=== PATIENT | female | born 1950 | race Caucasian/White ===

== ENCOUNTER → 2017-12-31 | Outpatient (CLI) | payer MEDICARE ==
--- NOTE | 2017-12-31 11:17 | MR ---
EXAMINATION TYPE: MR brain wo/w con DATE OF EXAM: 12/31/2017 COMPARISON: NONE HISTORY: Stroke TECHNIQUE: Multiplanar, multisequence images of the brain and brainstem is performed without and with IV contras t, utilizing 7.5 mL intravenous Gadavist . FINDINGS: Diffusion weighted images demonstrate no evidence of a recent infarct or other diffusion ab normality. There is [id number] degenerative change. Diffuse and focal areas of abnormal signal are seen throughout the white matter bilaterally totally g reater than 50 lesions. Findings are nonspecific. Tiny areas of abnormal signal the basal ganglia may represent remote lacunar infarct or prominent Vir sheffield-Jere spaces.. Midline structures demonstrate normal morphology. The craniocervical junction appears within normal limits. Post contrast images demonstrate no abnormal enhancement. The dural venous sinuses appear pa tent. Changes of chronic sinusitis are noted. IMPRESSION: 1. Degenerative and diffuse nonspecific white matter changes most typical remote microvascular ischem ia correlate clinically.
== END | disposition home or self-care (01) ==
LOC: RADMRIMAIN 10:01
PROVIDERS: ATTEND Internal Medicine Geriatric Medicine
DX: G31.9 Degenerative disease of nervous system, unspecified (principal); R90.82 White matter disease, unspecified
CPT/HCPCS: 70553; A9581

== ENCOUNTER → 2020-10-29 | Outpatient (CLI) | payer MEDICARE ==
[2020-10-29 10:22] VITALS: BP 133/89; PULSE 80; RESP 18; TEMP 98.2
--- NOTE | 2020-10-29 11:48 | P.HPOB ---
History of Present Illness H&P Date: 10/29/20 Chief Complaint: The patient is here for her routine gynecologic exam. This is a 70-year-old with an LMP of 2000. The patient is here to establish with this office. Her last pelvic exam was about 7 years ago. The patient has been experiencing discomfort with sexual intercourse and she states it feels like the vagina is "tight". She has tried lubricants without skin improvement. She is otherwise without complaints. She states she has no history of cervical cancer or precancerous changes of the cervix. She previously was seen at [facility] for regular gynecologic exams and Pap smears up until age 63. Review of Systems Weight has been stable. She denies respiratory or cardiac problems. GI: Occasional gastric reflux symptoms. She denies maltreatment or problems with falling. : Occasional small leakage which is not a significant problem for her. She has also noticed her strain is weaker over the years. Past Medical History Past Medical History: GERD/Reflux, Hyperlipidemia, Hypertension, Thyroid Disorder Additional Past Medical History / Comment(s): Hypothyroidism and osteopenia. 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 History of Any Multi-Drug Resistant Organisms: None Reported Past Surgical History: Tubal Ligation Additional Past Surgical History / Comment(s): 2 D&Cs. Parathyroid gland removed. Past Psychological History: No Psychological Hx Reported Smoking Status: Never smoker Past Alcohol Use History: Occasional (2 per week) Past Drug Use History: None Reported Additional History: She has been since 1968 and is sexually active. 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 - Past Family History Mother Family Medical History: Cancer Additional Family Medical History / Comment(s): Breast cancer. Maternal grandmother also had breast cancer. Father Family Medical History: Coronary Artery Disease (CAD) Medications and Allergies Home Medications Medication Instructions Recorded Confirmed Type Bioflax 1 tablet PO DAILY 10/29/20 10/29/20 History Calcium Carbonate [Calcium] 600 mg PO DAILY 10/29/20 10/29/20 History Ergocalciferol (Vitamin D2) 1,250 mcg PO DAILY 10/29/20 10/29/20 History [Vitamin D2 (50,000 Iu)] Famotidine [Pepcid] 20 mg PO HS 10/29/20 10/29/20 History Labetalol [Trandate] 200 mg PO HS 10/29/20 10/29/20 History Levothyroxine Sodium [Synthroid] 50 mcg PO HS 10/29/20 10/29/20 History Omeprazole 20 mg PO DAILY 10/29/20 10/29/20 History Rosuvastatin [Crestor] 20 mg PO HS 10/29/20 10/29/20 History Vitamin E 1,200 unit PO DAILY 10/29/20 10/29/20 History Zolpidem [Ambien] 5 mg PO HS PRN 10/29/20 10/29/20 History amLODIPine [Norvasc] 5 mg PO DAILY 10/29/20 10/29/20 History Allergies Allergy/AdvReac Type Severity Reaction Status Date / Time Penicillins AdvReac Rash/Hives Unverified 10/29/20 10:16 Exam Vital Signs Temp Pulse Resp BP Pulse Ox 10/29/20 10:17 98.2 F 80 18 133/89 98 Intake and Output 10/28/20 10/29/20 10/29/20 22:59 06:59 14:59 Other: Weight 82.1 kg Height 5 feet 3 inches, weight 181 pounds, BMI 32.1. This is a well-developed well-nourished white female who is alert and oriented times 3 in no acute distress. HEENT: Within normal limits. NECK: Supple without mass or thyromegaly. CHEST AND LUNGS: Clear to auscultation. HEART: Regular rate and rhythm. BREASTS: Are without mass or discharge. AXILLARY EXAM: Negative for adenopathy. BACK: Negative for CVA tenderness. ABDOMEN: Soft, nontender, without palpable masses. PELVIC EXAM: Normal external genitalia with mild to moderate atrophy. Cervix and vagina appear normal with mild to moderate atrophy. There is no unusual discharge. There is no evidence of prolapse. There is minimal urethral mobility with cough and Valsalva. No urinary leakage was demonstrated. The uterus is midposition, nongravid size and nontender. There are no palpable adnexal masses or tenderness. RECTAL EXAM: RectoVaginal exam is negative for mass or tenderness and is negative for occult blood. EXTREMITIES: Nontender. IMPRESSION: 1. 70-year-old menopausal female with normal gynecologic exam. 2. Dyspareunia secondary to vaginal dryness and genital atrophy. 3. History of osteopenia. PLAN: 1. We will obtain her Pap smear records from ages 55-65 from [facility] to confirm she has had adequate negative screening. She states she discontinued pelvic exams after age 63 until now. 2. Self breast awareness was discussed with the patient. 3. Her last screening mammogram was done in June 2020 at [facility] and she states it was normal. In order slip for her next mammogram in June 2021 was given to the patient. 4. Osteoporosis prevention was discussed. I have stressed the importance of adequate calcium, vitamin D and regular exercise. Recommended amounts of calcium and vitamin D were also discussed. Her last bone density test was done in June 2018 according to the patient. She states she has a history of osteopenia. We will plan on repeating the bone density test and the order slip was given to the patient for this. 5. Trial of Estrace vaginal cream 1 g into the vagina twice weekly. The electronic prescription will be sent to [facility] on . She will call if problems. 6. She did receive her flu shot last fall and has completed her Covid vaccination series. 7. The patient was advised to return in 1-2 years for her well woman examination and as needed.
== END ==
LOC: WWCWWP 10:03
PROVIDERS: ATTEND Obstetrics & Gynecology
DX: N94.10 Unspecified dyspareunia (principal); N89.9 Noninflammatory disorder of vagina, unspecified; I10 Essential (primary) hypertension; E78.5 Hyperlipidemia, unspecified; K21.9 Gastro-esophageal reflux disease without esophagitis; E03.9 Hypothyroidism, unspecified; Z87.39 Personal history of other diseases of the musculoskeletal system and connective tissue; Z79.891 Long term (current) use of opiate analgesic; Z79.899 Other long term (current) drug therapy; Z53.9 Procedure and treatment not carried out, unspecified reason